=== PATIENT | female | born 1975 | race Two or more races ===

== ENCOUNTER → 2025-02-06 | Outpatient (CLI) | payer OTHER, SELFPAY ==
--- NOTE | 2025-02-06 13:30 | XR_ITS ---
Examination: CT soft tissue neck, with intravenous contrast. 2-D coronal reconstructions. 2-D sagittal reconstructions. Date and time of exam :February 06, 2025 1348 hours INDICATIONS: Palpable masses in the right neck, enlarged lymph nodes right neck on outside ultrasound examination performed 6 months ago. CTDI: vol (mGy):20.7 DLP: (mGycm):596 Technique: 1.25 mm axial sections of the neck of the obtained. Coronal and sagittal reconstructions have been obtained. Intravenous contrast administered 50 cc Isovue-370. Low dose protocols were performed. One or more of the following dose reduction techniques were used; automated exposure control, adjustment of the mA and/or KV according to patient size, use of iterative reconstruction technique. Findings: Symmetrical optic globes Symmetrical nasopharynx Carotid triangle lymph nodes, the largest on the right side 12 mm Submental lymph nodes, the largest on the right side 14 mm Symmetrical submandibular glands The larynx appears normal Normal epiglottis No prevertebral soft tissue prominence IMPRESSION: Cervical lymphadenopathy as above
== END | disposition home or self-care (01) ==
PROVIDERS: PCP Physician Assistant Medical; Referring Provider Physician Assistant Medical; Visit Provider Physician Assistant Medical
DX: R59.0 Localized enlarged lymph nodes (principal)
CPT/HCPCS: 70491; A4649; Q9967

== ENCOUNTER → 2025-02-14 | Outpatient (CLI) | payer OTHER, SELFPAY ==
--- NOTE | 2025-02-14 13:59 | XR_ITS ---
Examination: MRI of brain without intravenous contrast. MRI brain with intravenous contrast. Date and time of exam:February 14, 2025 1413 hours INDICATIONS: Blurred vision daily headaches beginning October 2023 Technique: Multiple axial and sagittal images of the brain to been obtained. Siemens high-resolution 1.52 Deepika short bore scanner utilized. Sagittal sections, T1 weighted images, TR 500, TE 14, are performed. Axial sections proton-density and T2-weighted images have been obtained. Inversion recovery axial images, TR 9260, TE 111, TR 2500. Diffusion weighted images, axial sections, TR 4800, TE 128, B value 1000. Axial sections, ADC map, TR 4800, TE 128. Axial and coronal images were also obtained post 20 cc gadolinium administered intravenously. Findings:: Enlargement of the sella turcica is not present. The optic chiasm and infundibular stalk are not remarkable. There is no localized enlargement of the medulla or rachel. Fourth ventricle and cerebellar tonsils appear normal in position. No subacute area of hemorrhage density is seen. Fourth ventricle is midline. Mass in the cerebellopontine angle region is not evident. 7th and 8th nerve complexes exhibit symmetry Globes are symmetrical Orbital musculature including medial lateral rectus muscles do not exhibit abnormality Increased white matter signal is evident, scattered punctate foci increased signal in the right temporal and frontal white matter, FLAIR image 13 and left frontal white matter FLAIR image 14 Effacement of the cortical sulcal markings is not identified. Mass effect upon the ventricular system is not identified. Diffusion-weighted images demonstrate no focus of restricted diffusion Contrast images demonstrate no abnormal enhancement Impression: Negative for acute hemorrhage mass effect or midline shift No acute infarct Scattered punctate foci increased signal in the white matter, demyelinating disease
== END | disposition home or self-care (01) ==
LOC: SMRI 13:28
PROVIDERS: PCP Physician Assistant Medical; Referring Provider Physician Assistant Medical; Visit Provider Physician Assistant Medical
DX: G37.9 Demyelinating disease of central nervous system, unspecified (principal)
CPT/HCPCS: 70553; A9579

== ENCOUNTER 2025-06-02 19:57 | Emergency (ER) | payer OTHER, SELFPAY ==
[2025-06-02 19:58] VITALS: BMI 43.9
--- NOTE | 2025-06-02 20:13 | XR_ITS ---
Examination: Fingers, right hand 3 views fifth digit Technique: AP, oblique, lateral views right hand 3 views fifth digit. Exam date and time: June 02, 2025, 2018 hours INDICATIONS: Patient fell today with him to the hand fifth digit pain. FINDINGS: Dislocation proximal interphalangeal joint fifth digit No fracture IMPRESSION: Dislocation proximal interphalangeal joint fifth digit
[2025-06-02 20:41] VITALS: BP 149/111; PULSE 69; RESP 16; TEMP 36.8; O2SAT 96
--- NOTE | 2025-06-02 20:56 | EDNOTE_ITS ---
Upper Extremity Injury RME/HPI General Chief Complaint: Fall Stated Complaint: FALL, RIGHT FIFTH FINGER INJURY, ON PLAVIX Time Seen by Provider: 06/02/25 20:38 Arrival date/time: 06/02/25 19:57 49F with history of hypothyroidism presents to ED with R pinky pain/deformity after trip and fall forward. Patient is on Plavix, but denies any other injuries/pain. Limitations: no limitations Related Data Home Medications ?Medication ?Instructions ?Recorded ?Confirmed levothyroxine 125 mcg tablet 125 mcg PO DAILY ##0 01/2310/30/23 (Levoxyl) aspirin 81 mg tablet,delayed 81 mg PO QDAY 07/22/22 release (Adult Aspirin Regimen) Previous Rx's ?Medication ?Instructions ?Recorded ibuprofen 800 mg tablet 800 mg PO Q8H PRN pain #30 t abs 03/04/22 atorvastatin 40 mg tablet 40 mg PO QPM 1 month #30 tab s 10/31/23 Allergies Allergy/AdvReac Type Severity Reaction Status Date / Time No Known Allergies Allergy Verified 06/02/25 19:58 Review of Systems Review of Systems Systems Reviewed: All systems reviewed, normal except as documented Musculoskeletal Musculoskeletal: Reports as per HPI and Reports arthralgias Past Medical History Past Medical History CARDIAC: Negative Congestive Heart Failure RESPIRATORY: Negative Chronic Obstructive Pulmonary Disease (COPD) GENITOURINARY: Negative Renal Disease ENDOCRINE: Positive Hyperthyroidism; Negative Diabetes Mellitus Type 1 or Diabetes Mellitus Type 2 Surgical History SURGICAL: Positive Hysterectomy and Section Social History SMOKING STATUS: Never smoker ED Exam General Limitations: Present no limitations General appearance: Present alert and in no apparent distress Head Head exam: Present atraumatic Neck Neck exam: Present normal inspection, full ROM and trachea midline Chest Chest inspection: Present normal inspection and symmetric chest wall rise Expanded Upper Extremity Exam Hand exam: Present deformity (R pinky) Neurological Exam Neurological exam: Present alert and oriented X3 Psychiatric Psychiatric exam: Present normal affect and normal mood Skin Skin exam: Present warm, dry, intact and normal color Course Quality Measures none Orders Category Date Time Status jarad wrap [Splint / Immobilizer] STAT Care 06/02/25 20:39 Active XR finger RT min 2V Stat Exams 06/02/25 20:13 Completed HYDROcodone*/APAP 5/325 [[place] 5/325] Med 06/02/25 20:39 Discontinued 1 tab PO X1 ONE Vital Signs Vital signs: Vital Signs Temperature 98.2 F 06/02/25 20:41 Pulse Rate 69 06/02/25 20:41 Respiratory Rate 16 06/02/25 20:41 Blood Pressure 149/111 H 06/02/25 20:41 Pulse Oximetry (%) 96 06/02/25 20:41 O2 at 96% on RA and WNLs PROCEDURES: Orthopedic Joint Reduction Joint #1: Time Out Performed: No Side: Right Joint Reduction Location: finger Analgesia: none Technique used: direct manipulation Post-reduction neuro exam: intact Post-reduction vascular: intact Post Reduction X-Ray Obtained: No Splint Applied: No (patient left prior to application) Patient Tolerated Procedure: well and no complications Extremity Injury MDM Narrative MDM Narrative:: 49F with history of hypothyroidism presents to ED with R pinky pain/deformity after trip and fall forward. Patient is on Plavix, but denies any other injuries/pain. Physical exam reveals R pinky deformity. Patient is afebrile, calm, and alert. XR dislocation, which was reduced. ROM intact afterward. Patient left prior to receiving DC paperwork, finger protector, and meds. Patient data External records reviewed:: [facility] previous records Clinical information provided by:: patient Social determinants that could affect healthcare access:: none Patient has the following chronic illnesses:: hypothyroidsm How is presenting disease/condition affected by chronic disease/condition?: uneffected by Evaluation data The following diagnostics were reviewed and interpreted by me:: radiology exam(s) Lab and/or radiology exams considered but not ordered:: ordered Interpretation Summary: above Medications / Prescriptions Medications or Prescriptions considered but not ordered:: ordered Medication administrations:: Medication Administration History Discontinued Medications Hydrocodone Bitart/Acetaminophen (Hydrocodone/Apap 5/325 Tablet) 1 tab PO X1 ONE Stop: 06/02/25 20:40 above Consultations Consultation(s) initiated? (list below): No Diagnosis Upper Extremity Injury Differential Diagnosis: sprain and strain of wrist, fracture of wrist, finger sprain, Colles' fracture and fracture of hand Most likely diagnosis given after review of the tests above:: finger dislocation Admission Indicated Admission indicated?: not indicated Admission Request Was there a request for admission?: No Disposition Plan Disposition Plan: Discharge Discharge Attestation Discharge Attestation: The patient and all family members were given an opportunity to ask questions and understood the discharge instructions. Discharge instructions specifically effects, indications for sooner follow up or return to the emergency department, and the expected course of current diagnosis. Patient condition: Stable Discharge Plan Plan Patient Disposition: HOME (Self Care) Discharge Disposition comment: Stable Prescriptions/Referrals Prescriptions/Med Rec: No Action ibuprofen 800 mg tablet 800 mg PO Q8H PRN (Reason: pain) Qty: 30 0RF Rx Instructions: Start Ibuprofen tomorrow for Pain. aspirin [Adult Aspirin Regimen] 81 mg tablet,delayed release (DR/EC) 81 mg PO QDAY levothyroxine [Levoxyl] 125 MCG tablet 125 mcg PO DAILY Qty: 0 atorvastatin 40 mg tablet 40 mg PO QPM 30 Days Qty: 30 1RF Referrals: Antonietta Baltazar PA-C [Primary Care Provider] - In 1 week Problem List Clinical Impression: Dislocation of finger Patient/Caregiver Discharge Instructions Education Materials: ED Finger Dislocation Additional Instructions: Please follow-up with PCP within 24-48 hours and return immediately if symptoms worsen. Print Language: [place] Stand Alone Forms: Patient Portal Info Letter ROBERT/DUANE Supervising Physician CAM Supervising Physician: Dr. Topete
--- NOTE | 2025-06-02 21:05 | PC.NURSE ---
PT LEFT WITH OUT D/C PAPERS OR PAIN MEDICATION
== END 2025-06-02 21:06 | disposition home or self-care (01) ==
PROVIDERS: Emergency Provider Emergency Medicine; PCP Physician Assistant Medical
DX: S63.254A Unspecified dislocation of right ring finger, initial encounter (principal); E03.9 Hypothyroidism, unspecified; W01.0XXA Fall on same level from slipping, tripping and stumbling without subsequent striking against object, initial encounter; Z79.02 Long term (current) use of antithrombotics/antiplatelets
CPT/HCPCS: 73140; 99284